=== PATIENT | female | born 1985 | race Caucasian/White ===

== ENCOUNTER 2019-04-16 06:43 | Inpatient (IN) | payer OTHER ==
[~2019-04-16] VITALS: Ht 175.3 cm; Wt 99.8 kg
[2019-04-16 06:43] VITALS: BP 129/84
[~2019-04-16 06:43] MED LIST: ALBUTEROL2.5 MG/31 INH; DOXYCYCLINE 10100 MG PO; HYDROCORTISONE45 G1 TP; KEFLEX500 MG PO; NAPROSYN500 MG PO; NOHOMEMEDICATIONS; NORCO 5-325 TA1 EACH PO; PRENATAL COMPL1 EACH PO; ZPAK PO
[2019-04-16] MEDS ORDERED: ACCUNEB SO1.25 MG/1 (06:48)
[2019-04-16] MEDS ORDERED: CLEOCIN HCL150 MG PO (06:48)
[2019-04-16] MEDS ORDERED: TYLENOL EXTRA500 MG PO (06:51)
[2019-04-16 07:48] LABS: ABSOLUTE NEUTROPHILS 4.7 thou/uL (1.4-8.2); BASOPHILS 0.4 % (0.0-2.0); EOSINOPHILS 4.6 % (0.0-3.0); HEMATOCRIT 44.1 % (37.0-47.0); HEMOGLOBIN 15.3 gm/dL (12.0-15.0); MCH 33.6 pg (26.0-34.0); MCHC 34.7 g/dL (28.0-37.0); MONOCYTES 8.9 % (1.0-8.0); POLYS 67.1 % (36.0-66.0); RBC 4.54 mil/uL (4.20-5.00); RDW 12.1 % (10.5-14.5)
[2019-04-16 08:00] LABS: CALCIUM 8.8 mg/dL (8.5-10.1); CREATININE 0.7 mg/dL (0.6-1.0); POTASSIUM 3.6 mmol/L (3.5-5.1)
[2019-04-16 08:22] LABS: LARGE PLATELETS SEVERAL; PLATELET COUNT 67 thou/uL (150-400)
[2019-04-16 09:23] VITALS: BP 112/71
[2019-04-16 09:56] LABS: HEMATOCRIT 44.3 % (37.0-47.0); HEMOGLOBIN 15.3 gm/dL (12.0-15.0); MCH 33.7 pg (26.0-34.0); MCHC 34.7 g/dL (28.0-37.0); MCV 97.1 fL (80.0-100.0); RBC 4.56 mil/uL (4.20-5.00); RDW 12.3 % (10.5-14.5); WBC 6.5 thou/uL (4.0-11.0)
[2019-04-16 10:10] LABS: ALBUMIN 3.8 g/dL (3.4-5.0); CALCIUM 8.9 mg/dL (8.5-10.1); CREATININE 0.7 mg/dL (0.6-1.0); POTASSIUM 3.9 mmol/L (3.5-5.1); TOTAL BILIRUBIN 0.9 mg/dL (<0.1-1.0); TOTAL PROTEIN 7.2 g/dL (6.4-8.2)
[2019-04-16 10:48] VITALS: BP 128/72
[2019-04-16 16:54] VITALS: BP 115/70
--- NOTE | 2019-04-16 19:25 | NUR ---
Admitted in the floor due to L throat abscess. A+Ox4. Due medications given as prescribed. Pt on ice chips- Called Dr Muñiz re: diet orders, as per to call ENT and verify if he will be seeing pt today or do any procedure on pt, for the meantime keep pt on ice chips. With NS 1000ml from ED, to finish infusing then shift to , at R AC. Pt complained of pain, due PRN pain meds given as prescribed. Due for 2nd set of blood culture as per ED staff, called in laboratory and will come up to the dee to draw blood cultures. Admission assessment done to pt. Visited by family today. ENT called in by US, as per ENT doctor, will see pt tomorrow am; can have soft diet today then NPO for breakfast tomorrow- shift stacker staff informed. Pt able to tolerate soft diet for lunch and dinner. Up ad dominique. Vital signs stable. Pt started on blood sugar monitoring due to IV steroids.
[2019-04-16 19:40] VITALS: BP 131/79
--- NOTE | 2019-04-17 04:43 | NUR ---
Pt. rested quietly at intervals during the night when checked on during frequent rounds. She did c/o left sided throat pain and was given pain meds (see emar) with some relief noted. Requested something for sleep. New order for po benadryl. Pt. voiced she did not think she no longer needed anything for sleep when offered. No c/o shortness of air. Up ad dominique in her room.
[2019-04-17 07:43] VITALS: BP 115/69
[2019-04-17 14:19] VITALS: BP 118/72
[2019-04-17 19:51] VITALS: BP 127/76
[2019-04-17 20:28] VITALS: BP 127/76
--- NOTE | 2019-04-17 21:25 | NUR ---
PT DISCHARGED HOME, PT A&OX4, VSS, PAIN IN THROAT. PRESCIPTIONS CALLED IN TO PATIENT PHARMACY AND PATIENT AGREES TO PICK THEM UP TOMORROW MORNING. PATIENT EATING AND DRINKING WITHOUT ISSUE, DENIES SOA AND CHEST PAIN. PATIENT IS AWARE THAT ATTENDING DRXavi IS NOT AGREEABLE IN PRESCRIBING NARCOTIC MEDICATION. PATIENT STATED SHE WILL FOLLOW UP WITH HER ENT DRXavi FOR THIS MEDICATION. SPOUSE AT BEDSIDE TO ASSIST PATIENT. ALL BELONGINGS WITH PATIENT.
--- NOTE | 2019-04-18 19:45 | H ---
[facility] [place] [address] HISTORY AND PHYSICAL Name: SABINE KEARNS Room #: 458-P [facility] M.R.#: [id number] Admission: 04/16/19 Attend Phys: Sylvester Muñiz MD Discharge: 04/17/19 Date of : 81 Report #: [id number] THIS REPORT FOR: //name// CC: Sylvester Montes De Oca DATE OF SERVICE: 04/16/2019 REASON FOR PRESENTATION: Left-sided throat pain or difficulty swallowing. HISTORY OF PRESENT ILLNESS: This is a 33-year-old who had been having some issues with tonsillitis ever since 02/21/2019. This was treated with multiple antibiotics. She visited with her primary care physician 4 days ago and was given some antibiotics with some improvement after she received steroids. However, her symptoms persisted and she presented to [facility] a couple of days ago. CT scan was done. She was told that she has an abscess and she needs to follow up with an ENT. She was discharged on prednisone and Keflex. Symptoms recurred and the patient is having issues with her swallowing. No previous similar episodes. No dental issues. No recent procedures. No fever or chills. No syncope. No hypertension. PAST MEDICAL HISTORY: Asthma. PAST SURGICAL HISTORY: 3 sections. MEDICATIONS: Cephalexin, and prednisone. ALLERGIES: PENICILLIN. SOCIAL HISTORY: She is a current smoker. She is a homemaker. FAMILY HISTORY: Her father has coronary artery disease. Brother has diabetes. REVIEW OF SYSTEMS: GENERAL: No fever or chills. CARDIOVASCULAR: No chest pain, no palpitation. PULMONARY: As stated in the history of present illness. GASTROINTESTINAL: Decreased oral intake. GENITOURINARY: No frequency or urgency. MUSCULOSKELETAL: No back pain, no joints pain. SKIN: No rash or ulcerations. NEUROLOGICAL: No syncope. PHYSICAL EXAMINATION: GENERAL: She is alert, oriented, in no apparent distress. VITAL SIGNS: Pulse ox is 98, pulse rate is 100. Blood pressure is 129/84. [facility] [place] [address] HISTORY AND PHYSICAL Name: SABINE KEARNS Tone Room #: 458-P [facility] IN ..#: [id number] Admission: 04/16/19 Attend Phys: Sylvester Muñiz MD Discharge: 04/17/19 Date of : 81 Report #: [id number] Respiratory rate is 20. HEAD AND NECK: Left tonsillar abscess. CHEST: No crackles. CARDIOVASCULAR: Regular with no rub detected. ABDOMEN: Soft, nontender with no hepatosplenomegaly. LOWER EXTREMITIES: No edema with intact peripheral pulses. LABORATORY DATA: Reviewed. Hemoglobin is 15.3. Sodium is 142, BUN is 6, creatinine 0.7. Lactic acid is 1.0. White blood cell count is 7000. ASSESSMENT, IMPRESSION AND PLAN: 1. Tonsillar abscess. 2. Admission. 3. Obtain cultures. 4. ENT consultation. 5. Obtain the CT from [facility]. 6. Appropriate antibiotic initiation. <ELECTRONICALLY SIGNED> By: Sylvester Muñiz MD 04/18/19 1945 0930 [id number] Sylvester Muñiz MD /nt
== END 2019-04-17 20:45 | disposition home or self-care (01) | DRG 153 ==
LOC: ER 06:43 → EROBS 08:47 → 4W 10:24
PROVIDERS: Emergency Medicine; ADMIT Hospitalist
DX: J03.90 Acute tonsillitis, unspecified (principal); F12.90 Cannabis use, unspecified, uncomplicated; J45.909 Unspecified asthma, uncomplicated; F17.210 Nicotine dependence, cigarettes, uncomplicated; Z82.49 Family history of ischemic heart disease and other diseases of the circulatory system; Z83.3 Family history of diabetes mellitus; Z88.0 Allergy status to penicillin; Z79.899 Other long term (current) drug therapy
CPT/HCPCS: 10047